=== PATIENT | female | born 1995 | race American Indian/Alaskan Native ===

== ENCOUNTER 2018-02-23 10:33 | Outpatient (CLI) | payer OTHER | END 2018-02-24 11:50 | disposition home or self-care (01) | LOC: OBS/DEL 10:33 | DX: O26.893 Other specified pregnancy related conditions, third trimester (principal); M54.5 Low back pain; N20.0 Calculus of kidney; Z34.03 Encounter for supervision of normal first pregnancy, third trimester ==

== ENCOUNTER 2018-02-24 22:25 | Inpatient (IN) | payer OTHER ==
[~2018-02-24] VITALS: Ht 167.6 cm; Wt 75.7 kg
== END 2018-02-26 10:00 | disposition home or self-care (01) | DRG 781 ==
LOC: OBS/DEL 22:25 → LDR 02-25 15:02
PROC: 4A1HXCZ Monitoring of Products of Conception, Cardiac Rate, External Approach (ICD-10-PCS; principal; 2018-02-25)
DX: O24.410 Gestational diabetes mellitus in pregnancy, diet controlled (principal); O26.893 Other specified pregnancy related conditions, third trimester; N20.0 Calculus of kidney

== ENCOUNTER 2018-03-11 09:52 | Inpatient (IN) | payer OTHER ==
[~2018-03-11] VITALS: Ht 167.6 cm; Wt 82.6 kg
[2018-03-11] MEDS ORDERED: PRENATAL TABLE1 EAC2 PO (10:06)
== END 2018-03-13 14:06 | disposition home or self-care (01) | DRG 775 ==
LOC: OB/GYN 09:52 → LDR 09:52 → OB/GYN 18:46
PROC: 10E0XZZ Delivery of Products of Conception, External Approach (ICD-10-PCS; principal; 2018-03-11)
PROC: 0W8NXZZ Division of Female Perineum, External Approach (ICD-10-PCS; 2018-03-11)
PROC: 4A1HXCZ Monitoring of Products of Conception, Cardiac Rate, External Approach (ICD-10-PCS; 2018-03-11)
PROC: 4A033R1 Measurement of Arterial Saturation, Peripheral, Percutaneous Approach (ICD-10-PCS; 2018-03-11)
DX: O80 Encounter for full-term uncomplicated delivery (principal); Z3A.38 38 weeks gestation of pregnancy; Z37.0 Single live birth